=== PATIENT | female | born 1940 | race Caucasian/White ===

== ENCOUNTER → 2020-02-26 | Outpatient (CLI) | payer MEDICARE ==
[~2020-02-26] MED LIST: BUPR150T2; GLYB3; HYDR1TAB94 PO; METF500
== END ==
LOC: LAB SHORT 10:32 → LAB 10:32
DX: L08.9 Local infection of the skin and subcutaneous tissue, unspecified (principal)
CPT/HCPCS: 87070; 87205

== ENCOUNTER 2020-10-28 09:37 | Day surgery (SDC) | payer MEDICARE ==
--- NOTE | 2020-10-28 10:58 | NUR ---
ASSUMED CARE OF PT FROM RADIOLOGY. PT HAS A LUNG BIOPSY, DENIES PAIN OR SOB. PT LYING ON R SIDE OCCASIONAL COUGH NOTED BUT HASN'T COUGHED UP ANYTHING SPUTUM YET. PT PROVIDED WITH ICE WATER AND CALL LIGHT. DENIES NEED FOR ANYTHING AT THIS TIME.
--- NOTE | 2020-10-28 11:19 | NUR ---
PT REPOSITIONED SELF ON HER BACK, KNEES ELEVATED SLIGHT FOR PT COMFORT. PT PROVIDED WITH SUPPLIES TO WATCH TV. PT WITH OCCASIONAL COUGH. REPORTS SPUTUM IS "LIKE HER NORMAL" NO ACUTE CHANGES AT THIS TIME.
[2020-11-18] MEDS ORDERED: ALBU90OI INH (13:27)
[2020-11-18] MEDS ORDERED: ASPI81CH PO (13:28)
[2020-11-18] MEDS ORDERED: Ventolin5 MG/1 ML INH (13:28)
[2020-11-18] MEDS ORDERED: Budeprion Xl300 MG PO (13:30)
[2020-11-18] MEDS ORDERED: FOLI1 PO (13:31)
[2020-11-18] MEDS ORDERED: CAND4 PO (13:31)
[2020-11-18] MEDS ORDERED: ZOCOR20 MG PO (13:32)
[2020-11-18] MEDS ORDERED: POTA10T PO (13:32)
[2020-11-18] MEDS ORDERED: METF500 PO (13:32)
== END 2020-10-29 00:12 | disposition home or self-care (01) ==
LOC: CT 09:37 → EDSTATUS 10:00 → CT 10-29 00:12
DX: C34.01 Malignant neoplasm of right main bronchus (principal); J44.9 Chronic obstructive pulmonary disease, unspecified; E11.9 Type 2 diabetes mellitus without complications; Z87.891 Personal history of nicotine dependence; Z99.81 Dependence on supplemental oxygen; Z79.82 Long term (current) use of aspirin
CPT/HCPCS: 32408; 77012; 88305

== ENCOUNTER 2020-11-21 06:50 | Day surgery (SDC) | payer MEDICARE ==
[~2020-11-21] VITALS: Ht 160 cm; Wt 81.9 kg
[~2020-11-21 06:50] MED LIST changes: +ALBU90OI INH; +ASPI81CH PO; +Budeprion Xl300 MG PO; +CAND4 PO; +FOLI1 PO; +METF500 PO; +POTA10T PO; +Ventolin5 MG/1 ML INH; +ZOCOR20 MG PO
[2020-11-21] MEDS ORDERED: FURO20 PO (07:33)
--- NOTE | 2020-11-21 10:23 | NUR ---
Patient up to Ambulate independently. Gait steady. Discharge instructions reviewed with patient AND FAMILY. Patient AND DAUGHTER verbalize understanding. Copy given to patient to take home. Patient States Post-Procedure ride home has been arranged WITH DAUGHTER GIVING PT RIDE HOME. Discharged via wheelchair to private car for ride home.
== END 2020-11-21 10:25 | disposition home or self-care (01) ==
LOC: ORSCMMR 06:50 → ORD 10:15 → ORSCMMR 10:25
PROVIDERS: Surgery
PROC: 0JH60WZ Insertion of Totally Implantable Vascular Access Device into Chest Subcutaneous Tissue and Fascia, Open Approach (ICD-10-PCS; principal; 2020-11-21 08:15)
DX: C34.91 Malignant neoplasm of unspecified part of right bronchus or lung (principal); C34.92 Malignant neoplasm of unspecified part of left bronchus or lung; J44.9 Chronic obstructive pulmonary disease, unspecified; E11.9 Type 2 diabetes mellitus without complications; Z79.82 Long term (current) use of aspirin; Z79.899 Other long term (current) drug therapy; Z79.84 Long term (current) use of oral hypoglycemic drugs; Z87.891 Personal history of nicotine dependence
CPT/HCPCS: 77001; 82947; C1788; J0690; J1100; J1642; J2405; J2704; J3010; J7120

== ENCOUNTER 2021-03-31 14:11 | Emergency (ER) | payer MEDICARE ==
[~2021-03-31] VITALS: Ht 160 cm; Wt 81.7 kg
[~2021-03-31 14:11] MED LIST changes: +FURO20 PO; +Prednisone20 MG PO
[2021-03-31 14:53] LABS: BASOPHILS ABSOLUTE AUTO 0.04 K/mm3 (0.00-0.23); BASOPHILS PERCENT AUTO 1 % (0-2); EOSINOPHILS ABSOLUTE AUTO 0.85 K/mm3 (0.00-0.68); EOSINOPHILS PERCENT AUTO 14 % (0-6); Hematocrit 38.2 % (33.0-51.0); Hemoglobin 12.7 g/dL (11.5-16.0); IMMATURE GRAN ABSOLUTE AUTO 0.01 K/mm3 (0.00-0.10); IMMATURE GRAN PERCENT AUTO 0 % (0-1); LYMPHOCYTES ABSOLUTE AUTO 0.81 K/mm3 (0.84-5.20); LYMPHOCYTES PERCENT AUTO 14 % (21-46); MONOCYTES PERCENT AUTO 10 % (4-13); Mean Corpuscular HGB 31.7 pg (26.0-34.0); Mean Corpuscular HGB Conc 33.2 g/dL (31.5-36.5); Mean Corpuscular Volume 95 fL (80-100); Mean Platelet Volume 10.1 fL (9.1-12.4); NEUTROPHILS ABSOLUTE AUTO 3.71 K/mm3 (1.96-9.15); NEUTROPHILS PERCENT AUTO 62 % (41-73); Platelet Count 124 K/mm3 (150-400); RDW Coefficient Variation 11.8 % (11.7-14.2); RDW Standard Deviation 40.9 fL (35.1-46.3); Red Blood Cell Count 4.01 M/mm3 (3.80-5.20); White Blood Cell Count 6.02 K/mm3 (4.00-11.30)
[2021-03-31 15:20] LABS: Alanine Aminotransfer (ALT/SGP 20 U/L (12-78); Albumin, Blood 3.2 g/dL (3.4-5.0); Albumin/Globulin Ratio 0.9 (0.8-1.8); Alk Phos 45 U/L (50-136); Anion Gap 6 mmol/L (6-16); Aspartate Aminotrans (AST/SGOT 19 U/L (12-37); Bilirubin, Total 0.3 mg/dL (0.1-1.0); Blood Urea Nitrogen 23 mg/dL (8-24); Bun/Creatinine Ratio 33.4 (12.0-20.0); CO2, Blood 32 mmol/L (21-32); Calcium, Blood 9.1 mg/dL (8.5-10.1); Chloride, Blood 101 mmol/L (98-108); Creatinine, Blood 0.69 mg/dL (0.40-1.00); Globulin, Blood 3.4 g/dL (2.2-4.0); Glomerular Filtration Rate >60 (60-); Glucose, Blood 114 mg/dL (70-99); Potassium, Blood 4.4 mmol/L (3.5-5.5); Sodium, Blood 139 mmol/L (136-145); Total Protein, Blood 6.6 g/dL (6.4-8.2); Troponin I <0.015 ng/mL (0.000-0.040)
[2021-03-31] MEDS ORDERED: FLUT1DIS5 INH (17:38)
[2021-03-31] MEDS ORDERED: PRED20 PO (17:39)
== END 2021-03-31 18:55 | disposition home or self-care (01) ==
LOC: ER 14:11
PROVIDERS: Physician Assistant
DX: J44.1 Chronic obstructive pulmonary disease with (acute) exacerbation (principal); C34.90 Malignant neoplasm of unspecified part of unspecified bronchus or lung; I10 Essential (primary) hypertension; E78.00 Pure hypercholesterolemia, unspecified; Z87.891 Personal history of nicotine dependence; Z79.84 Long term (current) use of oral hypoglycemic drugs; Z79.82 Long term (current) use of aspirin; Z79.899 Other long term (current) drug therapy
CPT/HCPCS: 36415; 71045; 80053; 84484; 85025; 93005; 93010; 94640; 96374; 99285-25; J2930

== ENCOUNTER → 2022-01-27 | Outpatient (CLI) | payer MEDICARE ==
[~2022-01-27] MED LIST changes: +FLUT1DIS5 INH; +PRED20 PO
== END ==
LOC: LAB 21:00 → LAB SHORT 21:00 → EDSTATUS 10-23 11:20 → LAB FUT 10-23 11:20
DX: R05.9 Cough, unspecified (principal)
CPT/HCPCS: 87070; 87205

== ENCOUNTER → 2023-04-01 | Outpatient (CLI) | payer OTHER ==
[2023-04-01 19:20] LABS: Source, Urine Clean Catch
[2023-04-01 19:30] LABS: Appearance, Urine Hazy (Clear); Bilirubin, Urine Neg (Neg); Blood, Urine 1+ (Neg); Color, Urine Yellow (P-Yellow); Glucose Qualitative, Urine Neg (Neg); Ketones, Urine Neg (Neg); Leukocyte Esterase, Urine 2+ (Neg); Nitrite, Urine Pos (Neg); Protein, Urine 1+ (Neg); Urobilinogen, Urine NORM (Normal)
[2023-04-01 19:59] LABS: Squamous Epithelial Cells Few /hpf (Few); White Blood Cells, Urine 25-50 /hpf (0-5)
[2023-04-01 20:00] LABS: Bacteria Many /hpf
[2023-04-01 20:04] LABS: Hyaline Casts 0-2 /lpf (0-2)
== END ==
LOC: LAB 16:36 → LAB SHORT 16:36
PROVIDERS: Obstetrics & Gynecology
DX: R31.9 Hematuria, unspecified (principal)
CPT/HCPCS: 81001; 87077; 87086; 87186

== ENCOUNTER → 2023-08-13 | Outpatient (CLI) | payer OTHER | END | disposition home or self-care (01) | LOC: LAB SHORT 13:15 → LAB 13:15 | DX: C54.1 Malignant neoplasm of endometrium (principal) | CPT/HCPCS: 88305 ==

== ENCOUNTER 2024-01-15 11:59 | Emergency (ER) | payer OTHER ==
[~2024-01-15] VITALS: Ht 160 cm; Wt 83.9 kg
[2024-01-15 12:11] VITALS: BP 126/59
[2024-01-15 12:33] LABS: BASOPHILS ABSOLUTE AUTO 0.03 K/mm3 (0.00-0.23); BASOPHILS PERCENT AUTO 0 % (0-2); EOSINOPHILS ABSOLUTE AUTO 0.25 K/mm3 (0.00-0.68); EOSINOPHILS PERCENT AUTO 3 % (0-6); Hematocrit 36.4 % (33.0-51.0); Hemoglobin 12.3 g/dL (11.5-16.0); IMMATURE GRAN ABSOLUTE AUTO 0.02 K/mm3 (0.00-0.10); IMMATURE GRAN PERCENT AUTO 0 % (0-1); LYMPHOCYTES ABSOLUTE AUTO 0.69 K/mm3 (0.84-5.20); LYMPHOCYTES PERCENT AUTO 9 % (21-46); MONOCYTES ABSOLUTE AUTO 0.39 K/mm3 (0.16-1.47); MONOCYTES PERCENT AUTO 5 % (4-13); Mean Corpuscular HGB 29.5 pg (26.0-34.0); Mean Corpuscular HGB Conc 33.8 g/dL (31.5-36.5); Mean Corpuscular Volume 87 fL (80-100); NEUTROPHILS ABSOLUTE AUTO 6.38 K/mm3 (1.96-9.15); NEUTROPHILS PERCENT AUTO 82 % (41-73); Platelet Count 170 K/mm3 (150-400); RDW Coefficient Variation 13.6 % (11.7-14.2); Red Blood Cell Count 4.17 M/mm3 (3.80-5.20); White Blood Cell Count 7.76 K/mm3 (4.00-11.30)
[2024-01-15 12:54] LABS: Albumin, Blood 3.6 g/dL (3.4-5.0); Albumin/Globulin Ratio 0.9 (0.8-1.8); Bilirubin, Total 0.3 mg/dL (0.1-1.0); Bun/Creatinine Ratio 24.5 (12.0-20.0); Calcium, Blood 9.5 mg/dL (8.5-10.1); Creatinine, Blood 1.1 mg/dL (0.40-1.00); Globulin, Blood 4.2 g/dL (2.2-4.0); Potassium, Blood 4.1 mmol/L (3.5-5.5); Total Protein, Blood 7.8 g/dL (6.4-8.2)
[2024-01-15 13:01] LABS: Source, Urine Clean Catch
[2024-01-15 13:06] LABS: Appearance, Urine Clear (Clear); Bilirubin, Urine Neg (Neg); Blood, Urine Neg (Neg); Color, Urine No Color (P-Yellow); Glucose Qualitative, Urine Neg (Neg); Ketones, Urine Neg (Neg); Leukocyte Esterase, Urine Neg (Neg); Nitrite, Urine Neg (Neg); Protein, Urine Neg (Neg); Specific Gravity, Urine 1.015 (1.003-1.022); Urobilinogen, Urine NORM (Normal)
[2024-01-15] MEDS ORDERED: HYDROcodone 5-APAP 325 TAB PO ONE (16:20)
[2024-01-15] MEDS ORDERED: HYDR1TAB94 PO (16:25)
== END 2024-01-15 16:27 | disposition home or self-care (01) ==
LOC: ER 11:59
PROVIDERS: Physician Assistant
DX: C78.7 Secondary malignant neoplasm of liver and intrahepatic bile duct (principal); C34.90 Malignant neoplasm of unspecified part of unspecified bronchus or lung; Z79.82 Long term (current) use of aspirin; Z79.51 Long term (current) use of inhaled steroids; Z79.52 Long term (current) use of systemic steroids; Z79.899 Other long term (current) drug therapy; J44.9 Chronic obstructive pulmonary disease, unspecified
CPT/HCPCS: 74177; 80053; 81003; 85025; 99284-25; A9270; Q9967